=== PATIENT | female | born 1965 | race Caucasian/White ===

== ENCOUNTER 2022-07-29 03:13 | Emergency (ER) | payer OTHER, BC ==
[~2022-07-29] VITALS: Ht 175.3 cm; Wt 95.2 kg
[2022-07-29] MEDS ORDERED: ULTRAM50 MG PO (03:58)
== END 2022-07-29 04:35 | disposition home or self-care (01) ==
LOC: ED 03:13
DX: S83.92XA Sprain of unspecified site of left knee, initial encounter (principal); I10 Essential (primary) hypertension; E11.9 Type 2 diabetes mellitus without complications; K21.9 Gastro-esophageal reflux disease without esophagitis; W01.0XXA Fall on same level from slipping, tripping and stumbling without subsequent striking against object, initial encounter
CPT/HCPCS: 73560; 96372; 99283; A9270; J1885; J3360

== ENCOUNTER 2023-07-20 07:03 | Day surgery (SDC) | payer BC ==
[~2023-07-20] VITALS: Ht 175.3 cm; Wt 102.9 kg
[~2023-07-20 07:03] MED LIST: AIRDUO DIGIHAL1 EACH; FEOSOL325 MG; GLIPIZIDE ER5 MG PO; LIPITOR40 MG PO; METFORMIN HCL1000 MG PO; OMEPRAZOLE20 MG PO; SERTRALINE HCL25 MG PO; SERTRALINE HCL50 MG PO; TRAZODONE HCL50 MG PO; TYLENOL EXTRA500 MG; ULTRAM50 MG PO; VITAMIN D31250 MC2
[2023-07-20 07:20] VITALS: BP 159/66
[2023-07-20] MEDS ORDERED: LEVOTHYROXINE25 MCG PO (07:25)
[2023-07-20 09:34] VITALS: BP 135/108
--- NOTE | 2023-07-21 07:32 | OR ---
[facility] [address], [place] [address] Signed DATE OF OPERATION: 07/20/2023 SURGEON: Maria R Santoyo MD PREOPERATIVE DIAGNOSIS: Father with colon cancer and Crohn's disease at age 77. POSTOPERATIVE DIAGNOSES: 1. Minimal internal hemorrhoids. 2. Minimal to moderate sigmoid diverticulosis. 3. 3 mm polyp at 5 cm in rectum. 4. 5 mm polyp at 58 cm in the left colon. PROCEDURE: Colonoscopy with hot biopsy. ESTIMATED BLOOD LOSS: None. INDICATIONS: Briana is a 58-year-old obese diabetic female, asked to see me for her initial colonoscopy. She told me her dad was just diagnosed with colon cancer and Crohn's disease at the age of 77 earlier this year. Apparently, he has been through a couple of surgeries, but is doing better at this point. He has declined chemotherapy apparently. Briana has no lower GI complaints. In the office, I gave her a pamphlet on colonoscopy. We reviewed the nature of the test. There is risk including, but not limited to gas bloating, crampy abdominal pain, bleeding, perforation requiring surgery, and missed diagnosis. We also reviewed the need for IV conscious sedation. She had expressed understanding and wished to proceed. DESCRIPTION OF PROCEDURE: Briana was taken into our endoscopy suite and placed in the left lateral decubitus position. She was given 5 mg of Versed and 125 mcg of fentanyl to cover the case. A digital rectal exam was performed and this was unremarkable. She had good sphincter tone. No external hemorrhoids. No masses. The adult colonoscope was introduced and advanced all around into the cecum under direct visualization of the camera without difficulty. Her prep was overall good. There were a few areas of liquid stool that was irrigated and suctioned out. She might consider a little more prep in the future. Today, she used 64 ounces of Gatorade with MiraLAX. We could easily see the appendiceal orifice and the ileocecal valve. We withdrew the scope slowly. We took several Electronically Signed By: MARIA R SANTOYO MD 07/21/23 0732 PATIENT NAME: BRIANA INGRAM OPERATIVE REPORT DATE OF : 69 REPORT #: [id number] PHYSICIAN: MARIA R SANTOYO MD PCP: KATHRIN CASTANO REPORT IS CONFIDENTIAL AND NOT TO BE RELEASED WITHOUT AUTHORIZATION [facility] [address] [place], [place] [address] Signed pictures throughout for photodocumentation. We took a 5 mm polyp at 58 cm in the left colon with the help of hot biopsy forceps. In a similar fashion, we took a tiny 3 mm polyp in the rectum at 5 cm. She does have diverticula in the sigmoid colon. They were moderate in size, few in number and scattered about. Once in the rectum, the scope was retroflexed and she has minimal internal hemorrhoid columns. After this, the gas was suctioned out and the colonoscope removed. Briana tolerated the procedure quite well. RECOMMENDATIONS: I will see Briana back in my office in 7 to 14 days to review her results. She will stay on the five year plan due to her father's history. She might consider using a little more prep in the future. Maria R Santoyo MD ALB/MODL /[id number] cc: MD Kathrin Guadarrama FNP Copies: MARIA R SANTOYO MD ~ Electronically Signed By: MARIA R SANTOYO MD 07/21/23 0732 PATIENT NAME: BRIANA INGRAM OPERATIVE REPORT DATE OF : 69 REPORT #: [id number] PHYSICIAN: MARIA R SANTOYO MD PCP: KATHRIN CASTANO REPORT IS CONFIDENTIAL AND NOT TO BE RELEASED WITHOUT AUTHORIZATION
--- NOTE | 2023-07-22 14:56 | PATH ---
[facility] [address] [facility] [place], [place] [address] Signed SPECIMEN(S): A RECTAL POLYP, 5 CM SPECIMEN(S): B DESCENDING POLYP, 58 CM SPECIMEN SOURCE: A. RECTAL POLYP, 5 CM B. DESCENDING POLYP, 58 CM CLINICAL HISTORY: Initial screening, family history colon cancer FINAL PATHOLOGIC DIAGNOSIS: A. Rectal polyp at 5 cm: - Hyperplastic polyp (one fragment). B. Descending polyp at 58 cm: - Hyperplastic polyp (one fragment). JVR:[facility] MICROSCOPIC EXAMINATION: Histologic sections of all submitted blocks are examined by light microscopy. These findings, together with the gross examination, support the pathologic diagnosis. GROSS DESCRIPTION: A. The specimen, labeled and designated "Aditya, rectal polyp 5 cm," is received in formalin and consists of one gordon soft tissue fragment, 0.4 cm. Entirely submitted in (A1). B. The specimen, labeled and designated "Aditya, descending/left polyp, 58 cm," is received in formalin and consists of one gordon soft tissue fragment, 0.4 cm. Entirely submitted in (B1). VB (under the direct supervision of a pathologist) The Gross Description was prepared using a voice recognition system. The report was reviewed for accuracy; however, sound-alike word errors, addition and/or deletions may occur. If there is any question about this report, please contact Client Services. PERFORMING LABORATORY: Technical component was performed by [employer], [address] [place] [id number] (CLIA# [id number]). Professional interpretation was performed by [facility], [address] [place] [id number] (CLIA#: [id number]). PATIENT NAME: BRIANA INGRAM PATHOLOGY DATE OF : 69 REPORT #: [id number] PHYSICIAN: [facility] PCP: TODD CASTANO REPORT IS CONFIDENTIAL AND NOT TO BE RELEASED WITHOUT AUTHORIZATION [facility] [address] [place] [address] [place], [place] [address] Signed Diagnostician: Valerio Carrasco MD Pathologist Electronically Signed 07/22/2023 Copies: ~ PATIENT NAME: BRIANA INGRAM PATHOLOGY DATE OF : 69 REPORT #: [id number] PHYSICIAN: [facility] PCP: TODD CASTANO REPORT IS CONFIDENTIAL AND NOT TO BE RELEASED WITHOUT AUTHORIZATION
== END 2023-07-20 09:38 | disposition home or self-care (01) ==
LOC: OPS 07:03 → DS 07:03 → OPS 08:15 → DS 08:15 → OPS 09:38
PROVIDERS: ATTEND Colon & Rectal Surgery
PROC: 0DBP8ZX Excision of Rectum, Via Natural or Artificial Opening Endoscopic, Diagnostic (ICD-10-PCS; 2023-07-20)
PROC: 0DBG8ZX Excision of Left Large Intestine, Via Natural or Artificial Opening Endoscopic, Diagnostic (ICD-10-PCS; principal; 2023-07-20 08:15)
DX: Z12.11 Encounter for screening for malignant neoplasm of colon (principal); K63.5 Polyp of colon; K62.1 Rectal polyp; E78.2 Mixed hyperlipidemia; K21.9 Gastro-esophageal reflux disease without esophagitis; E66.09 Other obesity due to excess calories; E11.65 Type 2 diabetes mellitus with hyperglycemia; K64.8 Other hemorrhoids; K57.30 Diverticulosis of large intestine without perforation or abscess without bleeding; Z80.0 Family history of malignant neoplasm of digestive organs
CPT/HCPCS: 99153; G0500; J2250; J3010; J7121